=== PATIENT | female | born 1970 | race Caucasian/White ===

== ENCOUNTER 2023-11-07 11:50 | Emergency (ER) | payer OTHER, SELFPAY ==
[2023-11-07] VITALS (7 sets, daily range): BP systolic 130–154; BP diastolic 74–94; PULSE 65–79; RESP 16–18; TEMP 36.7; O2SAT 93–97; BMI 46.3
--- NOTE | 2023-11-07 12:35 | PC.NURSE ---
DR SONI AT BEDSIDE
--- NOTE | 2023-11-07 12:41 | XR_ITS ---
PROCEDURE INFORMATION: Exam: XR Left Knee Exam date and time: 11/07/2023 12:45 PM Age: 53 years old Clinical indication: Pain; Knee; Left; Additional info: Knee pain TECHNIQUE: Imaging protocol: Radiologic exam of the left knee. Views: 3 views. Total images: 3 COMPARISON: No relevant prior studies available. FINDINGS: Bones/joints: There are mild degenerative changes of the knee joint, predominantly involving the medial joint compartment. No evidence of acute fracture or dislocation. Soft tissues: Soft tissues are within normal limits. IMPRESSION: 1. There are mild degenerative changes of the knee joint, predominantly involving the medial joint compartment. 2. No evidence of acute fracture or dislocation.
--- NOTE | 2023-11-07 12:54 | HMH.EDGENADL ---
Discharge Plan Disposition Patient Disposition: Home, Self-Care Prescriptions Prescriptions: New cyclobenzaprine 10 mg tablet 10 mg PO TID PRN (Reason: muscle spasm) 5 Days Qty: 15 0RF lidocaine 4 % adhesive patch,medicated 1 patch topical DAILY Qty: 5 0RF Rx Instructions: may leave on for up to 12 hrs ibuprofen 800 mg tablet 800 mg PO TID PRN (Reason: pain) 7 Days Qty: 20 0RF Referrals Follow up/Referrals: Jo Ann Leach APRN [Primary Care Provider] - See instructions Activity Restrictions/Add. Instructions Additional Instructions/Restrictions: There is evidence of degenerative changes in the left knee but no evidence of any acute orthopedic or neurovascular emergency. Your symptoms are most consistent with sciatica and left lower extremity I agree with the orthopedic surgeons that open seeing you. Please return with any bowel or bladder incontinence lower extremity paralysis numbness between your legs or other concerns. Otherwise follow-up with your orthopedic surgeon as previously instructed. Clinical Impressions Clinical Impression: Sciatica, Arthritis of knee Discharge ED Provider: Erin Mejía General Adult HPI General Chief complaint: Extremity Problem,Nontraumatic Stated complaint: left leg pain can't weightbare Time Seen by Provider: 11/07/23 12:32 Mode of Arrival: Wheelchair Source of Information: Patient Limitations: No Limitations Description of Symptoms (Recalled from ER Triage Doc. by RN): Patient reports being seen at [facility] for pain in her lower back that radiates down her leg to her knee. States they gave her steroids and flexeril and she has been taking that for 3 days now with no relief of her symptoms. History of Present Illness HPI narrative: Patient is a 53-year-old female presents today with left lower extremity pain. She states has been going on for the last several days she has had back pain radiating down her leg associated with [id number] and burning type sensation all the way to her foot but it is localized mostly around her left knee. She has no difficulty with range of motion but does states she has difficulty with ambulation and weightbearing as that causes pain. No redness or swelling no fevers. No injuries. She saw orthopedic surgeon a few days ago started her on steroids and told her she had a working diagnosis of sciatica. They have an outpatient MRI scheduled if she is not improving. Related Data Previous Rx's Medication Instructions Recorded cyclobenzaprine 10 mg tablet 10 mg PO TID PRN muscle spasm 5 11/07/23 days #15 tabs ibuprofen 800 mg tablet 800 mg PO TID PRN pain 7 days #20 11/07/23 tabs lidocaine 4 % topical patch 1 patch topical DAILY #5 ea 11/07/23 Allergies Allergy/AdvReac Type Severity Reaction Status Date / Time No Known Allergies Allergy Verified 11/07/23 12:14 [facility] Disclaimer: The information contained in this section may have been updated after the patient was seen, as this information can be updated by other users. Social History Smoking Status: Never smoker alcohol intake: never current occupational status: other Travel in the last 8 weeks: None ROS Obtained: Yes All systems reviewed & no additional complaints except as documented Physical Exam General General appearance: alert and in no apparent distress Respiratory Respiratory exam: Present normal lung sounds bilaterally; Absent respiratory distress Cardiovascular Cardiovascular exam: Present regular rate and normal rhythm Extremities Exam Extremities exam: Present other (No evidence of swelling full range of motion no erythema warmth evidence of laxity on any ligamental exams or tenderness normal neurovascularly) Neurological Exam Neurological exam: Present alert and oriented X3 Medical Decision Making Lalo Inquiry Pt receiving controlled substance: No Vital Signs: 11/07/23 11:52 11/07/23 12:09 11/07/23 12:30 Temperature 98.0 F Temperature Source Oral Pulse Rate 73 71 Pulse Rate [Radial] 79 Respiratory Rate 16 18 Blood Pressure 133/74 130/83 Blood Pressure [Right Arm] 133/74 Blood Pressure Mean 85 98 Blood Pressure Mean [Right Arm] 93 Blood Pressure Source [Right Arm] Automatic Cuff Blood Pressure Position [Right Arm] Sitting 02 Sat by Pulse Oximetry 96 96 96 Oxygen Delivery Method Room Air Room Air 11/07/23 13:00 11/07/23 13:30 Temperature Temperature Source Pulse Rate 68 70 Pulse Rate [Radial] Respiratory Rate 18 18 Blood Pressure 138/85 147/75 H Blood Pressure [Right Arm] Blood Pressure Mean 96 92 Blood Pressure Mean [Right Arm] Blood Pressure Source [Right Arm] Blood Pressure Position [Right Arm] 02 Sat by Pulse Oximetry 93 L 97 Oxygen Delivery Method Orders (Tests/Meds): ED MEDICATIONS Discontinued Medications Generic Name Dose Route Start Last Admin Trade Name Freq PRN Reason Stop Dose Admin Cyclobenzaprine HCl 10 mg 11/07/23 12:41 11/07/23 13:11 Cyclobenzaprine 10mg Tablet PO 11/07/23 12:42 10 mg ONCE ONE Administration Ketorolac Tromethamine 60 mg 11/07/23 12:41 11/07/23 13:11 Ketorolac 60mg/2ml Vial IM 11/07/23 12:42 60 mg ONCE ONE Administration Lidocaine 1 each 11/07/23 12:41 11/07/23 13:12 Lidocaine 5% Transdermal Patch TP 11/07/23 12:42 1 each ONCE ONE Administration ORDERS Category Date Time Status Knee XR left 3 views [XR knee LT 3V] Stat Exams 11/07/23 12:41 Completed POCUS Point of Care (ER Only) Stat Exams 11/07/23 12:41 Ordered Medical Decision Narrative: 53-year-old female presenting today with above history and physical unlikely to be DVT we will do a limited bedside ultrasound to rule out blood clot. Also her knee exam is normal but she has localized pain in this area we will get an x-ray to confirm there is no obvious bony abnormalities or fracture dislocation septic joint or although on the differential. Symptoms most likely are consistent with sciatica as she has no signs or symptoms of cauda equina syndrome or any [employer] compression. She has no from a historical standpoint bowel or bladder incontinence saddle anesthesia lower extremity paralysis etc. Toradol lidocaine patch Flexeril were administered she has been advised to continue her steroids will reassess. X-ray performed to person interpreted which shows degenerative changes but no acute orthopedic abnormality Limited DVT ultrasound was performed which was unremarkable. Patient felt better after medication administration again is not consistent with a neurovascular orthopedic emergency she has been advised to follow-up with her orthopedic surgeons regarding further management of her sciatica. Return precautions emphasized. Procedures Miscellaneous Procedure Procedure Performed: Structures identified Common femoral veins and popliteal veins left Findings complete compression of left common femoral veins and bilateral popliteal veins with normal augmentation left Impression no evidence of left DVT The study was performed by me and I personally interpreted all images and videos based on my clinical judgment these images were adequate and did not necessitate further imaging Critical Care Critical Care Time Critical Care Time: No
[2023-11-07] MEDS: CYCLOBENZAPRINE 10MG TABLET 10 MG PO (13:11)
[2023-11-07] MEDS: KETOROLAC 60MG/2ML VIAL 60 MG IM (13:11)
[2023-11-07] MEDS: LIDOCAINE 5% TRANSDERMAL PATCH 1 EACH TP (13:12)
== END 2023-11-07 14:31 | disposition home or self-care (01) ==
PROVIDERS: Emergency Provider Student in an Organized Health Care Education/Training Program; PCP Nurse Practitioner
DX: M54.32 Sciatica, left side (principal); M25.562 Pain in left knee; M17.12 Unilateral primary osteoarthritis, left knee
CPT/HCPCS: 73562; 96372; 99284; J1885